=== PATIENT | male | born 1960 | race Caucasian/White ===

== ENCOUNTER 2023-08-22 23:44 | Emergency (ER) | payer MEDICARE ==
[~2023-08-22 23:44] MED LIST: IPRA3AMP24 IH; LEVO750T39 PO; PRED20TA3 PO
[2023-08-23 01:27] LABS: IMMATURE GRANULOCYTE ABSOLUTE 0.02 K/uL (0-1); LYMPHOCYTES # (AUTO) 0.3 K/uL (1.0-4.8); LYMPHOCYTES % (AUTO) 4.9 % (21.0-51.0); MEAN CORPUSCULAR HGB CONC 31.7 g/dL (32.0-36.0); MEAN CORPUSCULAR VOLUME 72.5 fL (79-99); MONOCYTES # (AUTO) 0.5 K/uL (0.1-1.0); MONOCYTES % (AUTO) 7.2 % (3.0-13.0); NEUTROPHILS # (AUTO) 5.6 K/uL (1.8-7.7); NEUTROPHILS % (AUTO) 87.6 % (40.0-77.0); PLATELET COUNT (AUTO) 231 K/uL (130-400); RED BLOOD CELL COUNT(AUTO) 3.31 MIL/uL (4.50-6.20); RED CELL DISTRIBUTION WIDTH 17.7 % (11.0-15.5); WHITE BLOOD COUNT (AUTO) 6.4 K/uL (4.8-10.8)
[2023-08-23 01:39] LABS: POTASSIUM 3.5 mmol/L (3.5-5.1)
[2023-08-23] MEDS: LORAZEPAM 2 MG/ML 1 ML VIAL IVP ONE (02:16)
[2023-08-23 03:18] VITALS: BP 165/97; PULSE 90; RESP 17; O2SAT 99
[2023-08-23] MEDS ORDERED: M.V.I. IV [ADULT] 10 ML, FOLIC ACID 1 MG, THIAMINE HCL 100 MG in 0.9%NACL 1000ML 1,000 ML IV SCH (09:00)
[2023-08-27] MEDS ORDERED: ALBU18HF7 IH (01:59)
[2023-09-01] MEDS ORDERED: AMLO5TAB4 PO (13:20)
[2023-09-01] MEDS ORDERED: FURO20TA6 PO (13:20)
[2023-09-01] MEDS ORDERED: METO25 PO (13:20)
[2023-09-01] MEDS ORDERED: SACU1TAB PO (13:20)
[2023-09-01] MEDS ORDERED: SPIR25TA6 PO (13:20)
[2023-09-01] MEDS ORDERED: CEFU500T67 PO (13:24)
[2023-09-01] MEDS ORDERED: FLUT1DIS4 IH (13:32)
[2023-09-02] MEDS ORDERED: CEFU500T67 PO (20:49)
[2023-09-02] MEDS ORDERED: SPIR25TA6 PO (20:54)
[2023-09-02] MEDS ORDERED: PRED20TA3 PO (20:59)
== END 2023-08-23 03:27 | disposition home or self-care (01) ==
LOC: EDH 23:44
DX: F10.139 Alcohol abuse with withdrawal, unspecified (principal); J45.909 Unspecified asthma, uncomplicated; J44.9 Chronic obstructive pulmonary disease, unspecified; F17.200 Nicotine dependence, unspecified, uncomplicated; Z79.52 Long term (current) use of systemic steroids; Y90.9 Presence of alcohol in blood, level not specified
CPT/HCPCS: 36415; 70450; 71045; 72125; 80048; 82550; 83605; 85025; 96374; J2060; J3411; J3490; J7030